=== PATIENT | male | born 1950 | race Caucasian/White ===

== ENCOUNTER 2020-03-29 10:10 | Inpatient (IN) | payer OTHER ==
[~2020-03-29] VITALS: Ht 175.3 cm; Wt 65.0 kg
[~2020-03-29 10:10] MED LIST: BACITRACIN 50,000 UNIT ONE; BUPIVACAINE/PF-EPI 0.5% 1:200K ONE; THROMBIN 20,000 UNIT VIAL TP ONE
[2020-03-29] MEDS ORDERED: LACTATED RINGERS 1,000 ML IV SCH (10:50)
[2020-03-29] MEDS ORDERED: DESO15CR21 TP (10:59)
[2020-03-29] MEDS ORDERED: METRONIDAZOLE (10:59)
[2020-03-29] MEDS ORDERED: TAMS-11 PO (10:59)
[2020-03-29] MEDS ORDERED: DOXY20TA5 PO (10:59)
[2020-03-29] MEDS ORDERED: FLUO30CR EXT (10:59)
[2020-03-29 11:00] VITALS: BP 165/97
[2020-03-29] MEDS ORDERED: GABAPENTIN 300 MG CAPSULE PO ONE (11:00)
[2020-03-29] MEDS ORDERED: SCOPOLAMINE 1MG PATCH TD SCH (11:00)
[2020-03-29] MEDS ORDERED: CHLORHEXIDINE 15 ML UDC MM ONE (11:00)
[2020-03-29] MEDS ORDERED: PLEASE ENTER HEIGHT AND WEIGHT MC SCH (11:00)
[2020-03-29] MEDS ORDERED: ACETAMINOPHEN 500 MG TABLET PO ONE (11:00)
[2020-03-29] MEDS ORDERED: SCOPOLAMINE 1MG PATCH TD ONE (11:18)
[2020-03-29] MEDS ORDERED: GABAPENTIN 300 MG CAPSULE ONE (11:19)
[2020-03-29] MEDS ORDERED: ACETAMINOPHEN 500 MG TABLET ONE (11:19)
[2020-03-29] MEDS ORDERED: CHLORHEXIDINE 15 ML UDC ONE (11:19)
[2020-03-29] MEDS ORDERED: PROPOFOL 50 ML ONE ×3 (11:33→18:18)
[2020-03-29] MEDS ORDERED: DEXAMETHASONE 4 MG/ML, 1ML ONE ×2 (11:34)
[2020-03-29] MEDS ORDERED: SUCCINYLCHOLINE 20 MG/ML, 10ML ONE (11:34)
[2020-03-29] MEDS ORDERED: FENTANYL PF 250 MCG/5ML ONE (11:34)
[2020-03-29] MEDS ORDERED: CEFAZOLIN 1,000 MG ONE ×2 (11:34)
[2020-03-29] MEDS ORDERED: PROPOFOL 10 MG/ML, 20ML ONE ×4 (11:34→18:03)
[2020-03-29] MEDS ORDERED: ONDANSETRON 2MG/ML, 2ML ONE (11:34)
[2020-03-29] MEDS ORDERED: MIDAZOLAM 1 MG/ML, 2ML ONE (11:34)
[2020-03-29] MEDS ORDERED: ROCURONIUM 10 MG/ML,10ML ONE (17:06)
[2020-03-29] MEDS ORDERED: METHYLENE BLUE 10 MG/ML 10ML ONE (18:02)
[2020-03-29] MEDS ORDERED: OXYcodone 5 MG/5 ML ORAL.SOL UDC PO PRN (18:30)
[2020-03-29] MEDS ORDERED: METHOCARBAMOL 1,000 MG in DEXTROSE 5% 100 ML IV PRN (18:30)
[2020-03-29] MEDS ORDERED: DIAZEPAM 5 MG/ML, 2ML IVPush PRN (18:30)
[2020-03-29] MEDS ORDERED: FENTANYL PF 100 MCG/2ML IV PRN (18:30)
[2020-03-29] MEDS ORDERED: HYDROmorphone 1 MG/ML, 1ML INJ IVPush PRN (18:30)
[2020-03-29] MEDS ORDERED: ONDANSETRON 2MG/ML, 2ML IVPush PRN (18:30)
[2020-03-29] MEDS ORDERED: MEPERIDINE/PF 25MG/0.5ML IVPush PRN (18:30)
[2020-03-29] MEDS ORDERED: PROMETHAZINE 25 MG/ML, 1ML IVPush PRN (18:30)
[2020-03-29] MEDS ORDERED: FENTANYL PF 100 MCG/2ML ONE (20:06)
[2020-03-29] MEDS ORDERED: OXYcodone 5 MG/5 ML ORAL.SOL UDC ONE (20:06)
[2020-03-29] MEDS: LABETALOL 5MG/ML, 20ML IV PRN ×2 (20:30→20:42)
[2020-03-29] MEDS ORDERED: CEFAZOLIN PMX 2GM/50ML 50 ML IVPB SCH (22:00)
[2020-03-29] MEDS ORDERED: DIPHENHYDRAMINE 50 MG/ML, 1ML IM PRN (22:00)
[2020-03-29] MEDS ORDERED: HYDROcodone/APAP 5/325 TABLET PO PRN (22:00)
[2020-03-29] MEDS ORDERED: BISACODYL 10 MG SUPP PR PRN (22:00)
[2020-03-29] MEDS ORDERED: METHOCARBAMOL 1,000 MG in DEXTROSE 5% 100 ML IV ONE (22:00)
[2020-03-29] MEDS ORDERED: ONDANSETRON 2MG/ML, 2ML IV PRN (22:00)
[2020-03-29] MEDS ORDERED: morphine SULFATE 10 MG/ML, 1ML IV PRN (22:00)
[2020-03-29] MEDS ORDERED: MAGNESIUM HYDROXIDE 8%, 30ML UDC PO PRN (22:00)
[2020-03-29] MEDS ORDERED: PHARMACY MAY ADJ FOR RENAL FX MC PRN (23:00)
[2020-03-30 00:42] VITALS: BP 147/78
[2020-03-30] MEDS: CEFAZOLIN PMX 2GM/50ML 50 ML IVPB SCH ×3 (01:16→16:59)
[2020-03-30] MEDS: NS + 20MEQ KCL 1,000 ML IV SCH ×2 (01:16→11:00)
[2020-03-30] MEDS: METHOCARBAMOL 750 MG in DEXTROSE 5% 100 ML IV SCH ×2 (02:30→10:22)
[2020-03-30 04:09] VITALS: BP 128/81
[2020-03-30] MEDS: HYDROcodone/APAP 10/325 MG TABLET PO PRN ×4 (05:45→21:37)
[2020-03-30 06:15] VITALS: BP 154/81
[2020-03-30] MEDS: SENNA/DOCUSATE TABLET PO SCH (08:35)
[2020-03-30] MEDS ORDERED: [UNRECOGNIZED DRUG - OTHER] HOMETP SCH (14:00)
[2020-03-30 14:25] VITALS: BP 159/79
[2020-03-30] MEDS ORDERED: DOXYCYCLINE 50MG CAPSULE ONE (14:25)
[2020-03-30] MEDS ORDERED: TAMSULOSIN 0.4 MG CAP.ER.24H ONE (14:25)
[2020-03-30] MEDS: TAMSULOSIN 0.4 MG CAP.ER.24H PO SCH (14:51)
[2020-03-30] MEDS ORDERED: METHOCARBAMOL 750 MG in DEXTROSE 5% 100 ML IV ONE (18:00)
[2020-03-30 19:55] VITALS: BP 152/72
[2020-03-30] MEDS: DIPHENHYDRAMINE 25 MG CAPSULE PO PRN (21:36)
[2020-03-30] MEDS: SODIUM CHLORIDE FLUSH 3ML SYRINGE IVF SCH (21:38)
[2020-03-30] MEDS: [UNRECOGNIZED DRUG - OTHER] HOMETP SCH (21:41)
[2020-03-31 00:04] VITALS: BP 163/90
[2020-03-31] MEDS: CYCLOBENZAPRINE 10 MG TABLET PO SCH ×3 (02:31→17:08)
[2020-03-31] MEDS: HYDROcodone/APAP 10/325 MG TABLET PO PRN ×5 (02:32→21:45)
[2020-03-31 06:29] VITALS: BP 158/93
[2020-03-31] MEDS: DIPHENHYDRAMINE 25 MG CAPSULE PO PRN (06:42)
[2020-03-31] MEDS: DOXYCYCLINE 50MG CAPSULE PO SCH (08:11)
[2020-03-31] MEDS: MAGNESIUM HYDROXIDE 8%, 30ML UDC PO SCH (08:11)
[2020-03-31] MEDS: SENNA/DOCUSATE TABLET PO SCH (08:11)
[2020-03-31] MEDS: TAMSULOSIN 0.4 MG CAP.ER.24H PO SCH (08:11)
[2020-03-31] MEDS: [UNRECOGNIZED DRUG - OTHER] HOMETP SCH ×2 (08:47→21:00)
[2020-03-31] MEDS: SODIUM CHLORIDE FLUSH 3ML SYRINGE IVF SCH ×2 (08:48→21:43)
[2020-03-31 14:00] VITALS: BP 154/75
[2020-03-31 19:00] VITALS: BP 166/85
[2020-04-01] MEDS ORDERED: METHOCARBAMOL 750 MG TABLET PO SCH (02:00)
[2020-04-01] MEDS: CYCLOBENZAPRINE 10 MG TABLET PO SCH ×2 (02:05→09:38)
[2020-04-01 02:14] VITALS: BP 162/83
[2020-04-01] MEDS: HYDROcodone/APAP 10/325 MG TABLET PO PRN (05:55)
[2020-04-01 07:14] VITALS: BP 159/84
[2020-04-01] MEDS: TAMSULOSIN 0.4 MG CAP.ER.24H PO SCH (09:38)
[2020-04-01] MEDS: DOXYCYCLINE 50MG CAPSULE PO SCH (09:38)
[2020-04-01] MEDS: SODIUM CHLORIDE FLUSH 3ML SYRINGE IVF SCH (09:38)
[2020-04-01] MEDS: MAGNESIUM HYDROXIDE 8%, 30ML UDC PO SCH (09:38)
[2020-04-01] MEDS: SENNA/DOCUSATE TABLET PO SCH (09:38)
[2020-04-01] MEDS: [UNRECOGNIZED DRUG - OTHER] HOMETP SCH (09:39)
[2020-04-01] MEDS ORDERED: HYDR-3246 PO (12:14)
[2020-04-01 12:36] VITALS: BP 154/84
== END 2020-04-01 12:38 | disposition home or self-care (01) | DRG 472 ==
LOC: ORIP 10:10 → 4NE 21:23 → DCLOUNGE 04-01 12:32
PROVIDERS: ADMIT Neurological Surgery; ATTEND Neurological Surgery
PROC: 0RG2071 Fusion of 2 or more Cervical Vertebral Joints with Autologous Tissue Substitute, Posterior Approach, Posterior Column, Open Approach (ICD-10-PCS; 2020-03-29)
PROC: 0RG4071 Fusion of Cervicothoracic Vertebral Joint with Autologous Tissue Substitute, Posterior Approach, Posterior Column, Open Approach (ICD-10-PCS; 2020-03-29)
PROC: 4A11X4G Monitoring of Peripheral Nervous Electrical Activity, Intraoperative, External Approach (ICD-10-PCS; 2020-03-29)
PROC: 01N10ZZ Release Cervical Nerve, Open Approach (ICD-10-PCS; principal; 2020-03-29 13:30)
DX: M48.02 Spinal stenosis, cervical region (principal); M50.00 Cervical disc disorder with myelopathy, unspecified cervical region; M54.12 Radiculopathy, cervical region; N40.0 Benign prostatic hyperplasia without lower urinary tract symptoms; M43.13 Spondylolisthesis, cervicothoracic region
CPT/HCPCS: 72040; 87635; 95938; 95941; C1713; G0378; J0690; J1100; J2250; J2405; J2704; J3010; J3480; C9352; J0330; J2800; J7120; Q0163; Q9968